=== PATIENT | female | born 2000 | race Caucasian/White ===

== ENCOUNTER 2021-03-28 12:31 | Emergency (ER) | payer OTHER ==
[~2021-03-28] VITALS: Ht 162.6 cm; Wt 88.5 kg
[2021-03-28] MEDS ORDERED: NORGESTIMATE-E1 EAC1 PO (14:38)
== END 2021-03-28 17:30 | disposition home or self-care (01) ==
LOC: ED 12:31
DX: K59.00 Constipation, unspecified (principal); K62.5 Hemorrhage of anus and rectum
CPT/HCPCS: 74022; 80053; 81001; 83690; 84703; 85025; 99284-25